=== PATIENT | female | born 1960 | race Caucasian/White ===

== ENCOUNTER 2019-02-14 06:00 | Outpatient (RCR) | payer OTHER, SELFPAY | END 2019-02-22 00:01 | LOC: WPT 06:00 | PROVIDERS: Visit Provider Family Medicine | DX: S39.012D Strain of muscle, fascia and tendon of lower back, subsequent encounter (principal); X58.XXXS Exposure to other specified factors, sequela | CPT/HCPCS: 97110 ×2; 97140 ×2; 97161; G0283 ×3; 97112 ==

== ENCOUNTER 2019-02-24 | Outpatient (RCR) | payer OTHER, SELFPAY | END 2019-06-17 | disposition home or self-care (01) | LOC: WPT | PROVIDERS: PCP Family Medicine; Visit Provider Family Medicine | DX: M54.5 Low back pain (principal) | CPT/HCPCS: 97110; 97112; G0283 ==

== ENCOUNTER 2019-11-17 11:32 | Outpatient (CLI) | payer OTHER, SELFPAY ==
--- NOTE | 2019-11-17 11:42 | US_ITS ---
WS: [id number] Pelvic ultrasound, 11/17/2019 Clinical Data: FAMILY HX OF OVARIAN CA/PELVIC PAIN Comparison: None. Findings: The uterus measures 4.58 cm x 3.1 cm x 1.7 cm. The endometrium is 0.1 cm. There are several small fibroids in the uterus. The left ovary measures 1.0 cm x 0.5 cm x 0.4 cm with no cysts or masses. The right ovary measures 1.0 cm x 0.8 cm x 0.6 cm with a small calcification. There is no fluid in the cul-de-sac. US/US pelvic with transvaginal Impression: 1. Several small uterine leiomyomas. 2. Right ovarian calcification.
== END 2019-11-17 11:33 | disposition home or self-care (01) ==
LOC: US 11:37
PROVIDERS: Visit Provider Nurse Practitioner Family
DX: Z80.41 Family history of malignant neoplasm of ovary (principal); R10.2 Pelvic and perineal pain; N83.8 Other noninflammatory disorders of ovary, fallopian tube and broad ligament; D25.9 Leiomyoma of uterus, unspecified
CPT/HCPCS: 76830; 76856

== ENCOUNTER 2019-12-06 11:42 | Outpatient (CLI) | payer OTHER, SELFPAY ==
--- NOTE | 2019-12-06 11:49 | MM_ITS ---
WS: [id number] SCREENING DIGITAL MAMMOGRAM WITH CAD HISTORY: SCREENING COMPARISON: None available. Bilateral CC and MLO views submitted. Computer aided detection analyzed. Breast composition: There are scattered areas of fibroglandular density. Subtle area of spiculation a nd architectural distortion at 12:00. There are several benign-appearing calcifications within the RI GHT breast. Patient did provide a history of a prior RIGHT breast biopsy. MM/[place] [id number] IMPRESSION: BI-RADS: 0-Incomplete: Need additional imaging evaluation FOLLOW UP: Need Additional Imaging RIGHT breast: Spot compression views (CC and MLO). True ML. Ultrasound to follo w if abnormality persists. This area of distortion may be related to a prior biopsy site. There were no st udies available to demonstrate long-term stability.
== END 2019-12-06 11:43 | disposition home or self-care (01) ==
LOC: RADSHAW 11:47
PROVIDERS: Visit Provider Nurse Practitioner Family
DX: Z12.31 Encounter for screening mammogram for malignant neoplasm of breast (principal); R92.1 Mammographic calcification found on diagnostic imaging of breast
CPT/HCPCS: 77067

== ENCOUNTER → 2019-12-19 15:41 | Outpatient (BNVA) | payer OTHER, SELFPAY | PROVIDERS: Visit Provider Obstetrics & Gynecology | DX: N83.8 Other noninflammatory disorders of ovary, fallopian tube and broad ligament (principal); R10.2 Pelvic and perineal pain | CPT/HCPCS: 81000; 86304 ==

== ENCOUNTER → 2020-01-13 10:21 | Outpatient (BNVA) | payer OTHER, SELFPAY | PROVIDERS: PCP Nurse Practitioner Family; Visit Provider Obstetrics & Gynecology | DX: Z11.59 Encounter for screening for other viral diseases (principal); G89.29 Other chronic pain; R10.2 Pelvic and perineal pain | CPT/HCPCS: 87635 ==

== ENCOUNTER 2020-01-18 10:03 | Observation (INO) | payer OTHER, SELFPAY ==
[2020-01-16 13:09] VITALS: BMI 34.6
--- NOTE | 2020-01-16 13:24 | ANES.PREANE2 ---
Pre-Anesthetic Assessment Pre-Anesthetic Assessment: Height/Weight: Height 1.65 m Weight 94.347 kg Preop Diagnosis: Calcified ovary Proposed Procedure: Operation Date: 01/18/20 07:00 Proposed Procedures p Total Vaginal Hysterectomy 04037 R10.2(Not Applicable) - Aaron Sweeney MD s Salpingo-Oophorectomy (Vaginal)(Bilateral) - Aaron Sweeney MD Familial anesthetic complications: None Social: Social History: Tobacco and No alcohol Exam: Pre-Anes Outpt Exam: alert, oriented x 3, clear to auscultation bilaterally and regular rate & rhythm Airway: Cervical ROM: WNL MP: 2 Dentition: False CV/HEM: CV/HEM: HTN Metabolic: Metabolic: Thyroid Musc/skel: Musc/skel: Lower Back Pain Anesthetic Plan: ASA status: 2 Anesthesia: General Risk of > 500 ml blood loss (7ml/kg in children): No PFSH Anesthesia PFSH: Family History Mother Diabetes Hyperlipidemia Hypertension Stroke Sister Diabetes Hyperlipidemia Hypertension Thyroid condition Uterine cancer 40's Ovarian cancer Grandmother Ovarian cancer maternal Denies family history of Colon cancer Clotting disorder Breast cancer Anesthesia complication Bleeding disorder Social History (Updated 01/16/20 @ 10:42 by Cristine Estrada RN) Smoking and tobacco status: current every day smoker cigarettes Packs smoked per day: 1 Alcohol intake: former Former alcohol use details: in her 's Substance/Drug Use: never Female Reproductive History: Date of last menstrual period: 01/16/99 Data Anesthesia Cardiac Studies: No Data to Display
[2020-01-18] VITALS (16 sets, daily range): BP systolic 82–147; BP diastolic 51–96; PULSE 55–79; RESP 12–18; TEMP 36.4–37.2; O2SAT 94–100
[2020-01-18 06:23] LABS: Add Urine Microscopic? NO
[2020-01-18] MEDS: sodium chloride 0.9% 500 ML IV ×2 (06:24→15:58)
[2020-01-18] MEDS: scopolamine 1.5 Patch 1 PATCH TRANSDERMA (06:24)
[2020-01-18 06:32] LABS: Bilirubin Urine Neg (Negative); Blood Urine Neg (Negative); Glucose Urine UA Norm (Normal); Ketones Urine Negative (Negative); Leukocyte Esterase Urine Negative (Negative); Nitrate Urine Negative (Negative); Protein Urine Neg (Negative); Specific Gravity, Urine 1.015 (1.005-1.030); Urine Appearance Clear (CLEAR); Urine Color Straw (Yellow); Urobilinogen Urine Norm (Negative)
--- NOTE | 2020-01-18 06:36 | P.ANESUD_ITS ---
Pre-Anesthetic Update Pre-Anesthetic Assessment: Date of Surgery/Procedure: 01/18/20 Preop Stella gnosis: Chronic pelvic pain and right ovarian calcification Proposed Procedure: Operation Date: 01/18/20 07:00 Proposed Procedures p Total Vaginal Hysterectomy 79496 R10.2(Not Applicable) - Aaron Sweeney MD s Salpingo-Oophorectomy (Vaginal)(Bilateral) - Aaron Sweeney MD Any changes to Pre-Anesthetic Assessment?: No Last Intake: Intake Last Liquid Date 01/17/20 Last Liquid Time 21:30 Last Solid Date 01/17/20 Last Solid Time 20:00 Labs Last 48hrs: Laboratory Results - last 48 hr 01/18/20 06:06 Urine Color Straw Urine Appearance Clear Urine pH 5.0 Ur Specific Gravit y 1.015 Urine Protein Neg Urine Glucose (UA) Norm Urine Ketones Negative Urine Blood Neg Urine Nitrate Negative Urine Bilirubin Neg Urine Urobilinogen Norm Ur Leukocyte Izzy ase Negative Vitals: Temperature 97.6 F 01/18/20 06:09 Temperature Source Temporal Artery S can 01/18/20 06:09 Pulse Rate 78 01/18/20 06:09 Respiratory Rate 18 01/18/20 06:09 Blood Pressure 147/96 01/18/20 06:09 Blood Pressure Michaela n 113 01/18/20 06:09 Pulse Oximetry 98 01/18/20 06:09 Oxygen Delivery Me thod 01/18/20 06:09 Exam: Pre-Anes Outpt Exam: alert, oriented x 3, clear to auscultation bilaterally and regular rate & rhythm Cardiac Studies: No Data to Display
[2020-01-18 06:37] LABS: Basophils # 0.1 10^3/uL (0.0-0.1); Basophils % 0.9 %; Eosinophils # 0.5 10^3/uL (0.0-0.8); Eosinophils % 4.4 %; Hematocrit 43.5 % (37.0-47.0); Hemoglobin 14.7 g/dL (11.5-15.3); Lymphocytes % 16.9 %; Mean Corpuscular HGB Conc 33.8 g/dL (30.0-36.0); Mean Corpuscular Hemoglobin 32.8 pg (28.0-34.0); Mean Corpuscular Volume 97.1 fL (81-99); Mean Platelet Volume 10.4 fL (7.4-10.4); Monocytes % 8.3 %; Neutrophils # 8.22 10^3/uL (1.8-7.7); Neutrophils % 69.1 %; Nucleated Red Blood Cells % 0 %; Platelet Count 307 10^3/cmm (130-400); Red Blood Count 4.48 10^6/uL (4.1-5.3); Red Cell Distribution Width 11.9 % (12.1-15.1); White Blood Count 11.9 10^3/uL (4.0-10.0)
[2020-01-18] MEDS: ceFOXitin 2,000 MG in sodium chloride 0.9% (plus) 50 ML 100 MG IV (07:05)
--- NOTE | 2020-01-18 07:21 | W.PM.OPSUD ---
Surgery/Procedure H&P Update DATE OF PROCEDURE: January 18, 2020 DATE H&P PERFORMED: 01/16/20 H&P UPDATE INFORMATION: I have reviewed H&P completed within last 30 days, I have examined patient prior to procedure and No changes to prior documentation PREOP DIAGNOSIS: Chronic pelvic pain and right ovarian calcification PLANNED PROCEDURE: Operation Date: 01/18/20 07:00 Proposed Procedures p Total Vaginal Hysterectomy 13703 R10.2(Not Applicable) - Aaron Sweeney MD s Salpingo-Oophorectomy (Vaginal)(Bilateral) - Aaron Sweeney MD
[2020-01-18 07:28] LABS: Alanine Aminotransferase 17 U/L (0-33); Alkaline Phosphatase 56 IU/L (35-105); Anion Gap 16.1 (5-19); Aspartate Amino Transferase 14 U/L (0-32); Blood Urea Nitrogen 16 mg/dL (6-20); Calcium 9.1 mg/dL (8.5-10.5); Carbon Dioxide 25 mmol/L (22-29); Chloride 101 mmol/L (98-107); Globulin 2.9 g/dL (1.3-4.6); Glomerular Filtration Rate 86.2 mL/min (90-130); Glucose 110 mg/dL (65-115); Osmolality Calculated 288 mOsm/kg (285-295); Potassium 4.1 mmol/L (3.5-5.1); Sodium 138 mmol/L (136-145); Total Bilirubin 0.2 mg/dL (0.15-1.2); Total Protein 6.9 g/dL (6.6-8.7)
[2020-01-18] MEDS: lidocaine 2% INJ 20 mL INJECTION (07:42)
[2020-01-18] MEDS: estrogens Conjugated Cream 30 gm 1 APPLIC VAGINAL (09:29)
--- NOTE | 2020-01-18 09:57 | PM.OP ---
Operative Report Date of procedure: January 18, 2020 Pre-op Diagnosis: Chronic pelvic pain and right ovarian calcification Post-op diagnosis: same Post-op Findings: Normal-sized uterus normal. Right ovary Specimens removed/disposition: Uterus and right ovary Surgeon: Aaron Sweeney MD Anesthesia: General Estimated blood loss (mL): 100 IV fluids (mL): 800 Urine output (mL): 500 Condition: stable Disposition: PACU Brief History: 59-year-old female with chronic pelvic pain and right ovarian calcification Procedure: After informed consent and risks, benefits, indications and alternatives reviewed with the patient was taken to the operating room. The patient was placed in dorsal lithotomy position prepped, and draped in the usual sterile fashion. The pre-procedure timeout verifying the correct patient, procedure, site and side, could not requirements was performed and acknowledge by the OR team. A Perez catheter was placed. A Bookwalter vaginal retractor was placed into the vagina in usual manner visualize the cervix. Cervix was grasped with a single tooth tenaculum and circumferentially infiltrated with 1% Xylocaine with epinephrine. Then cervix was circumferentially incised with bovie and the bladder was dissected off the pubovesical cervical fascia anteriorly with a sponge stick and Metzenbaum scissors. The anterior peritoneal reflection was identified and the anterior cul-de-sac was entered sharply with Metzenbaum scissors. The same procedure was performed posteriorly and a posterior colpotomy was made through the posterior cul-de-sac space without difficulty and the posterior blade of the Bookwalter vaginal retractor was advanced posteriorly into the cul-de-sac. At this time, the left and right uterosacral ligaments were isolated and ligated with 0 Vicryl. The Enseal device was placed over the uterosacral ligaments on either side and was then used in a serial fashion up through the cardinal ligaments bilaterally cross-clamped, cut, and sealed with the Enseal device. Finally, the uterine arteries were cross-clamped, cut, sealed and ligated with the Enseal device. Hemostasis was assured. The broad ligaments were then serially clamped, sealed and cut with the Enseal device on both sides. Excellent hemostasis was visualized. Both cornua were clamped, sealed and cut with the Enseal device. Then the pedicles were then suture ligated with excellent hemostasis. The uterus was excised and submitted for pathologic evaluation. Then the right ovary was identified and grasped with jb then clamped, sealed and cyt with the Enseal device and excised with complications. The left ovary could not be idenfied. No other abnormalities were noted in the pelvic cavity. The peritoneum was then closed with the vaginal cuff angles were closed with [id number] #0 Vicryl suture on both sides and transfixed with the ipsilateral cardinal and uterosacral ligaments via modified Sanchez culdoplasty. The remainder of the vaginal cuff was closed with #0 Vicryl in a running locked fashion. At this time, instruments were removed from the vagina at hemostasis assured. Then the Perez catheter was removed and cystoscope was inserted. The bladder was filled with sterile water. Complete evaluation of the bladder mucosa was performed noting no lacerations, dimpling, tears, bleeding of the mucosa or muscular layers. Both ureteral orifices were identified. Prompt excretion of urine from both ureteral orifices was noted. Cystoscope was withdrawn. Perez catheter was then placed yielding clear isaac urine. A vaginal packing with Premarin cream was placed and the patient was taken out of dorsal lithotomy position and awakened from the general anesthesia. The patient tolerated the procedure well and was taken to the PACU recovery room in a stable condition. Sponge, lap, needle and instruments counts were correct x3.
[2020-01-18] MEDS: ketorolac 30 mg/mL INJ IVP ×3 (11:11→21:46)
[2020-01-18] MEDS: dextrose 5%-lactated ringers 1,000 ML 125 ML IV ×2 (11:11→20:18)
[2020-01-18] MEDS: ondansetron 2 mg/ML SDV 2 mL 4 MG IVP (11:12)
--- NOTE | 2020-01-18 13:44 | PC.RESP ---
Smoking Cessation information sent to patient.
[2020-01-18] MEDS: sodium chloride 0.9% 1,000 ML 999 ML IV (17:31)
[2020-01-18] MEDS: docusate sodium 100 mg Capsule PO (17:31)
[2020-01-18] MEDS: HYDROcodone-acetaminophen 5-325 mg Tablet PO (17:31)
[2020-01-18] MEDS: FUROsemide 10 mg/mL SDV 4mL 40 MG IVP (19:12)
--- NOTE | 2020-01-18 22:24 | PC.NURSE ---
AT 2215, PT AMBULATED UP AND DOWN UNIT HALLWAY FOUR TIMES. BOX CAR WASHER PROVIDED STANDBY ASSISTANCE. PT TOLERATED WELL. BOX CAR WASHER PROVIDED STANDBY ASSISTANCE FOR PT TO GET BACK INTO BED FOLLOWING AMBULATION.
[2020-01-19 03:56] VITALS: BP 88/57; PULSE 55; RESP 15; TEMP 36.6; O2SAT 99
[2020-01-19] MEDS: ketorolac 30 mg/mL INJ IVP (04:15)
[2020-01-19] MEDS: dextrose 5%-lactated ringers 1,000 ML 125 ML IV (04:15)
[2020-01-19 05:01] LABS: Hematocrit 34.2 % (37.0-47.0); Mean Corpuscular HGB Conc 32.2 g/dL (30.0-36.0); Mean Corpuscular Hemoglobin 32.5 pg (28.0-34.0); Mean Corpuscular Volume 101.2 fL (81-99); Mean Platelet Volume 10.6 fL (7.4-10.4); Platelet Count 212 10^3/cmm (130-400); Red Blood Count 3.38 10^6/uL (4.1-5.3); Red Cell Distribution Width 12.2 % (12.1-15.1); White Blood Count 13.8 10^3/uL (4.0-10.0)
[2020-01-19] MEDS: HYDROcodone-acetaminophen 5-325 mg Tablet PO ×2 (05:22→10:32)
--- NOTE | 2020-01-19 05:58 | PC.NURSE ---
AT 0445, RETENTION REPRESENTATIVE REMOVED VAGINAL PACKING FROM PATIENT'S VAGINAL OPENING. ONE STRIP OF PACKING, ROUGHLY 18 INCHES LONG, WAS REMOVED. STRIP WAS NOTED TO BE COVERED IN THICK DARK BROWN VAGINAL DISCHARGE. NO BRIGHT RED BLEEDING NOTED. PT TOLERATED WELL AND STATES SHE FEELS MUCH BETTER.
--- NOTE | 2020-01-19 08:23 | ANE.PACU2 ---
Inpatient post-anesthesia follow up: Airway intact: Yes Vital signs: Temperature 98 F Pulse Rate 55 Respiratory Rate 15 Blood Pressure 88/57 Pulse Oximetry 99 Oxygen Delivery Me thod Room Air Oxygen Flow Rate 8 Fraction of Inspir ed Oxygen Hydration adequate: Yes Nausea and vomiting: No Pain level: 1 Mental status: Baseline
[2020-01-19] MEDS: docusate sodium 100 mg Capsule PO (08:41)
[2020-01-19] MEDS: hydroCHLOROthiazide 25 mg Tablet PO (08:41)
--- NOTE | 2020-01-19 08:41 | P.DS_ITS ---
Discharge Providers WATER TREATMENT SPECIALIST Date of Admission: 01/18/20 10:03 Date of Discharge: 02/01/20 Attending Provider at Admission: Aaron Sweeney MD Attending Provider at Discharge: Aaron Sweeney MD Primary Care Provider: MARCIA JONES Reason for Visit Reason for Visit: [facility] Hospital Course Hospital Course 59-year-old female with chronic pelvic pain unresponsive to medical ma nagementand right ovarian calcification. admitted for total vaginal hysterectomy and bilateral salpingo-oophorectomy. A total vaginal hysterectomy and right salpingo-oophorectomy was performed. Left ovary could not be identified. Postop observation was uneventful. Afebrile hemodynamically stable. Tolerating diet well. Ambulating without difficulty. Physical Exam Narrative: EXAM NARRATIVE: GA: Alert and oriented ?3. HEENT: WNL. Heart: Regular rate and rhythm. Lungs: Clear to auscultation bilaterally. Abdomen: Bowel sounds present, nontender, minimal tenderness, incision clean and dry, no redness, pain or edema. FOREST OFFICER: No bleeding. Extremities: No edema, no cyanosis, no calves pain. Discharge Data Data Completed and Pending: Pending at discharge Category Date Time Status ES surgery / GI i mages Routine Exams 01/18/20 07:24 Taken Pathology: Surgic al [PTH] Routine Pth 01/18/20 12:22 Received Labs from last 24 hours 01/19/20 04:22 WBC 13.8 H RBC 3.38 L Hgb 11.0 L Hct 34.2 L MCV 101.2 H MCH 32.5 MCHC 32.2 RDW 12.2 Plt Count 212 MPV 10.6 H Vitals: Last Vital Signs Temp 98 F 01/19/20 03:56 Pulse 55 L 01/19/20 03:56 Resp 15 01/19/20 03:56 BP 88/57 01/19/20 03:56 Pulse Ox 99 01/19/20 03:56 Discharge Plan Discharge Patient Disposition: Home Condition: Stable Prescriptions: New ibuprofen 800 mg tablet 800 mg PO TID PRN (Reason: pain) Qty: 60 RF: 0 [place] 5-325 mg tablet 1 tab PO Q4H PRN (Reason: pain) Qty: 30 RF: 0 Continued thyroid (pork) [[place] Thyroid] 120 mg tablet 120 mg PO DAILY RF: 0 hydrochlorothiazide 25 mg tablet 25 mg PO DAILY Qty: 30 RF: 0 Discharge Orders: Discharge Order (Routine); Ordered 01/19/20 Ordered By: Aaron Sweeney Referrals: Aaron Sweeney MD [Physician] - 01/31/20 2:15 pm (* Your 2 week incision check is with Dr. Sweeney on 01/31/2020 at 2:15pm. * Your 6 week follow up appointment is with Dr. Sweeney on 02/28/2020 at 2:15pm. ) Patient Instructions: Vaginal Hysterectomy (DC), OB Abdominal Surgery - [facility], OB Discharge Report, OB Food/Drug Interaction Guide, Post Anesthesia Care Activity Restrictions/Additional Instructions: 1. Please [place] [facility] [place] [facility] on next working day to make your post-operative appointment in 2 weeks. 2. Please stay home until you come back to the clinic on first post-operative check up. 3. Please follow instructions on your medications CAREFULLY. 4. If you have abdominal incision, do not cover it unless dressing is necessary because of drainage. OK to shower, but avoid bath. Leave steri-strips until they fall off. If they are still on one week after surgery, you may remove them. 5. If you had vaginal surgery, your doctor may instruct you to take SITZ bath. 6. Yellow, blood tinged odorous vaginal discharge is usually normal after hysterectomy or vaginal surgeries. 7. No sexual intercourse, tampons, or douches until you are completely released from the post-operative care. 8. Avoid constipation by eating right and maybe using some Metamucil or Milk of Magnesia. 9. All prescription refills are given during the working hours. Please do no wait till it runs out. Call the clinic at [phone] before your medication runs out. The clinic will get in touch with your doctor to prescribe medications if necessary. 10. Please remain within 40 mile radius from our hospital because emergencies do happen now and then during the post-operative period. 11. If you have stairs at home, take one step at a time slowly and minimize the number of trips. It helps to stay in one floor for the next few days. No lifting except what you can lift by one hand until you are released from the post-operative care. 12. Driving is discouraged until you are well healed. It may be 3-4 weeks before you feel strong enough to drive. You should be able to turn and look through the rear window without pain and you should be able to push the brake pedal very hard without pain before you drive. No fast rules, but SAFETY should be your primary concern. DO NOT drive if you are on sedating medications such as narcotics. 13. Call the clinic (during working hours) to make urgent appointment or go to the Emergency room, if any of the following occurs: i. Vaginal bleeding becomes heavy, more than a period. ii. Incision becomes red and sore, or drains pus. iii. Your temperature is over 100.4 or you have chill. iv. IV site becomes red and swollen (a little ``knot?? is usually OK) v. Persistent nausea and vomiting vi. Persistent constipation or diarrhea vii. Rash or allergic reaction to medications. Discharge Attestations WATER TREATMENT SPECIALIST Time Spent in Discharge Care*: greater than 30 min Coding Level of Care Code Acute Continuous Pickling Line Pickler Helper for Sofiya Dave
[2020-01-19] MEDS: thyroid 60 mg Tablet 120 MG PO (09:06)
[2020-01-19 10:30] VITALS: BP 128/74; PULSE 59; RESP 17; TEMP 36.7; O2SAT 99
[2020-01-19] MEDS: ibuprofen 800 mg tablet PO (10:32)
[2020-01-19 10:39] VITALS: BP 128/74; PULSE 59; RESP 17; TEMP 36.7; O2SAT 99
== END 2020-01-19 10:39 | disposition home or self-care (01) ==
LOC: OBGYN 10:04
PROVIDERS: Admitting Provider Obstetrics & Gynecology; PCP Nurse Practitioner Family; Visit Provider Obstetrics & Gynecology
PROC: (CPT 58262; principal; 2020-01-18 07:00)
PROC: (CPT 58720; 2020-01-18 07:00)
PROC: 0TJB8ZZ Inspection of Bladder, Via Natural or Artificial Opening Endoscopic (ICD-10-PCS; CPT 52000; 2020-01-18 07:00)
DX: N83.8 Other noninflammatory disorders of ovary, fallopian tube and broad ligament (principal); I10 Essential (primary) hypertension; F17.210 Nicotine dependence, cigarettes, uncomplicated
CPT/HCPCS: 58262; 12345; 36415; 80053; 81003; 85025; 85027; 86850; 86900; 88307; 96361; 96365; 96375; G0378; J0131; J0694; J1885; J1940; J2405; J2704; J2710; J3010; J3490; J7030; J7040

== ENCOUNTER 2020-03-05 09:07 | Outpatient (CLI) | payer OTHER, SELFPAY ==
--- NOTE | 2020-03-05 09:13 | MM_ITS ---
WS: [id number] ADDITIONAL VIEWS RIGHT BREAST HISTORY: RT BREAST ARCHITECTURAL DISTORTION COMPARISON: 12/06/2019 Compression views right CC and MLO projection. True ML also submitted. No persistent distortion. No mass associated with the area of mild thickening. Benign calcifications. MM/[place] [id number] IMPRESSION: BI-RADS: 2-Benign FOLLOW-UP: 1 Year Follow-up Return to annual screening mammography.
== END 2020-03-05 09:08 | disposition home or self-care (01) ==
PROVIDERS: PCP Nurse Practitioner Family; Visit Provider Nurse Practitioner Family
DX: N64.89 Other specified disorders of breast (principal)
CPT/HCPCS: 77065

== ENCOUNTER → 2024-03-17 11:59 | Outpatient (BNVA) | payer OTHER, SELFPAY | PROVIDERS: PCP Nurse Practitioner Family; Visit Provider Nurse Practitioner Family | DX: R50.9 Fever, unspecified (principal); J06.9 Acute upper respiratory infection, unspecified | CPT/HCPCS: 87400 ==